=== PATIENT | male | born 1960 | race Caucasian/White ===

== ENCOUNTER → 2018-04-03 | Day surgery (SDC) | payer OTHER ==
[2018-03-28 10:29] LABS: BASOPHILS # (AUTO) 0.1 (0.0-0.1); BASOPHILS % 0.9 % (0.0-1.0); EOSINOPHILS # (AUTO) 0.2 (0.0-0.4); EOSINOPHILS % 2.4 % (0.0-6.0); HEMATOCRIT 46.9 % (38.2-49.6); HEMOGLOBIN 16.3 g/dL (14.0-18.0); LYMPHOCYTES % 26.3 % (18.0-39.1); MEAN CORPUSCULAR HEMOGLOBIN 30.7 pg (28-32); MEAN CORPUSCULAR HGB CONC 34.8 g/dL (31-35); MEAN CORPUSCULAR VOLUME 88.3 fL (81-99); MONOCYTES # (AUTO) 0.8 (0.2-0.8); MONOCYTES % 10.1 % (4.4-11.3); NEUTROPHILS # (AUTO) 4.5 (2.1-6.9); NEUTROPHILS % 59.5 % (38.7-80.0); PLATELET COUNT 157 x10e3/uL (140-360); RED BLOOD COUNT 5.31 x10e6/uL (4.3-5.7); RED CELL DISTRIBUTION WIDTH 12.5 % (11.7-14.4)
[~2018-04-03] MED LIST: ASPIR 8181 MG PO; BENEFIBER1 EACH PO; CEFTRIAXONE SOD 1 GM VIAL ONE; DEXAMETHASONE SOD PHOS INJ 4 MG/ML VIAL ONE; FENTANYL CITRATE/PF 100MCG/2 ML INJ ONE; FIBER TABS625 MG PO; FINASTERIDE5 MG PO; FISH OIL 1,0001 EAC2 PO; GENTAMICIN 80MG/NS 100 ML 200 ML IV ONE; IOPAMIDOL 610MG/1ML 300 MG/ML VIAL IV ONE; KETOROLAC TROMETHAMINE 30 MG/ML VIAL ONE; LIDOCAINE HCL 2% LOCAL INJ 5 ML SDV VIAL INJ ONE; MEPERIDINE HCL INJ 50 MG/ML INJ ONE; METOCLOPRAMIDE HCL 10 MG/2ML VIAL ONE; MIDAZOLAM HCL 2 MG/2 ML VIAL ONE; ONDANSETRON HCL INJ 2 MG/ML VIAL ONE; PRILOSEC40 MG PO; PROMETHAZINE HCL (IM) 25 MG/ML VIAL ONE; PROPOFOL IV EMULSION 10 MG/ML 20 ML VIAL ONE; SEVOFLURANE INHAL SOLN 250 ML PEN BTL ONE; VIT D PO
[2018-04-03 12:00] VITALS: BP 106/74
--- NOTE | 2018-05-07 03:54 | Operative Report ---
DATE OF PROCEDURE: April 03, 2018 PREOPERATIVE DIAGNOSES 1. Obstructive BPH. 2. Incomplete bladder emptying. POSTOPERATIVE DIAGNOSES 1. Obstructive BPH. 2. Incomplete bladder emptying. 3. Urethral stricture disease. OPERATIONS PERFORMED 1. Cystourethroscopy with dilation of bulbar and fossa navicularis stricture disease (separate procedure performed for the stricture disease). 2. Cystourethroscopy with bilateral ureteral catheterization and retrograde ureteropyelography (separate procedure performed for the incomplete bladder emptying). 3. Interpretation of retrograde ureteropyelography. 4. Supervision of fluoroscopy. No radiologist present. 5. Cystourethroscopy with transurethral resection of prostate utilizing the plasma button electrode (separate procedure for the large obstructing BPH). ANESTHESIA: General. COMPLICATIONS: None. CLINICAL SUMMARY: Romel Casiano is a 57-year-old man with obstructive BPH. He has a 91-mL gland that was measured at prior negative prostate biopsies. The patient has postvoid residual of 240 mL. He is brought for the above procedures. He is aware of the risks of bleeding, infection, injury to adjacent structures, incontinence, impotence, need for additional procedures and he elected to proceed. OPERATIVE PROCEDURE IN DETAIL: Informed consent was verified. Romel Casiano was properly identified, taken to the operating room, placed on the cystoscopy table in supine position. Anesthesia was uneventfully begun. Patient was then carefully and gently repositioned in dorsal lithotomy position with all pressure points well padded. His genitalia were prepared and draped in usual sterile fashion. The 22.5-Taiwanese cystoscope sheath with visual obturator in place was placed into the patient's urethral meatus, but it could not be advanced past the fossa navicularis. We then calibrated the fossa navicularis to approximately 16-Taiwanese in size and dilated to 28-Taiwanese in size. We were then easily able to place a cystoscope sheath into the patient's urethra. It was guided down the otherwise unremarkable urethra to the bulbar region where an additional stricture was noted. We dilated across this stricture with the visual obturator in place, thus we dilated to 22.5-Taiwanese in size. We went through the patient's prostate bed. It was significant for bilobar prostatic hypertrophy with an elevated median bar and visual obstruction with kissing lateral lobes. We entered the patient's bladder where panendoscopy revealed no suspicious mucosal lesions, no tumors and no diverticula. Heavy trabeculations were noted. An 8-Taiwanese catheter was used to cannulate each ureter and retrograde ureteral pyelograms were performed. Interpretation of retrograde ureteropyelography: Contrast was instilled in retrograde fashion bilaterally. There were no tumors, no stones and no diverticula. Unobstructed drainage was observed bilaterally fluoroscopically. The resectoscope was then inserted under direct vision with a visual obturator. We dilated across the bulbar stricture again to the level of the scope. We then utilized the plasma button electrode from the bladder neck to past the verumontanum and down to the surgical capsule. This was a rather extensive procedure for a very large prostate. We obtained excellent hemostasis with electrocautery. We never vaporized or resected beyond the verumontanum. The resectoscope was then withdrawn. Ashton catheter was placed. It was placed on continuous irrigation. The patient was uneventfully reversed from anesthesia and taken to recovery room in stable condition. There were no complications during the procedure. He tolerated the procedure well. Explicit postoperative instructions were given and we will follow the patient up in the office at which point we will perform uroflowmetry and bladder ultrasonography. Job#: [id number] cc:TIFFANIE SMITH MD
== END | disposition home or self-care (01) ==
LOC: OR 05:08
PROVIDERS: ATTEND Urology
DX: N40.1 Benign prostatic hyperplasia with lower urinary tract symptoms (principal); N13.8 Other obstructive and reflux uropathy; R39.14 Feeling of incomplete bladder emptying; N35.912 Unspecified bulbous urethral stricture, male; N32.89 Other specified disorders of bladder; K21.9 Gastro-esophageal reflux disease without esophagitis; Z87.891 Personal history of nicotine dependence; Z01.810 Encounter for preprocedural cardiovascular examination; Z01.812 Encounter for preprocedural laboratory examination; Z88.8 Allergy status to other drugs, medicaments and biological substances
CPT/HCPCS: 36415; 52005; 52601; 74420; 85025; 93005; C1758; J0696; J1100; J1580; J1885; J2001; J2175; J2250; J2405; J2550; J2765; Q9967

== ENCOUNTER → 2018-12-09 | Outpatient (CLI) | payer OTHER ==
[~2018-12-09] MED LIST changes: -CEFTRIAXONE SOD 1 GM VIAL ONE; -DEXAMETHASONE SOD PHOS INJ 4 MG/ML VIAL ONE; -FENTANYL CITRATE/PF 100MCG/2 ML INJ ONE; -GENTAMICIN 80MG/NS 100 ML 200 ML IV ONE; -IOPAMIDOL 610MG/1ML 300 MG/ML VIAL IV ONE; -KETOROLAC TROMETHAMINE 30 MG/ML VIAL ONE; -LIDOCAINE HCL 2% LOCAL INJ 5 ML SDV VIAL INJ ONE; -MEPERIDINE HCL INJ 50 MG/ML INJ ONE; -METOCLOPRAMIDE HCL 10 MG/2ML VIAL ONE; -MIDAZOLAM HCL 2 MG/2 ML VIAL ONE; -ONDANSETRON HCL INJ 2 MG/ML VIAL ONE; -PROMETHAZINE HCL (IM) 25 MG/ML VIAL ONE; -PROPOFOL IV EMULSION 10 MG/ML 20 ML VIAL ONE; -SEVOFLURANE INHAL SOLN 250 ML PEN BTL ONE
--- NOTE | 2018-12-09 15:21 | Diagnostic Imaging Report ---
Renal ultrasound. History: Renal cysts Comparison: 10/02/2014 Discussion: Transverse and longitudinal images of the kidneys were obtained demonstrating normal renal sizes and echogenicities. There is no evidence of hydronephrosis, mass or renal calculus. The right kidney measures 12.2 x 4.8 x 5.2 cm and the left kidney measures 11.3 x 5.0 x 5.5 cm. Maximal cortical thickness on the right is 1.7 cm and on the left 1.2 cm. There is an exophytic 4.4 x 3.4 x 2.8 cm left renal cyst (previously measured 3.8 x 3.6 x 3.5 cm). There is a small peripelvic cyst measuring 0.8 x 0.5 x 0.9 cm. The urinary bladder is unremarkable with an estimated prevoid volume of 121.5 cc. The prostate has an estimated volume of 18.9 cc and measures 4.2 x 2.6 x 3.5 cm. There is no evidence of free fluid. IMPRESSION: Left renal cysts. Signed by: Dr. Douglas Padilla DO on 12/09/2018 3:18 PM
== END ==
LOC: US 13:21
PROVIDERS: ATTEND Urology
DX: N28.1 Cyst of kidney, acquired (principal)
CPT/HCPCS: 76770